=== PATIENT | female | born 1955 | race Asian ===

== ENCOUNTER → 2017-08-11 | Outpatient (CLI) | payer OTHER | LOC: BRMIMAGING 10:21 | PROVIDERS: ATTEND Family Medicine | DX: Z12.31 Encounter for screening mammogram for malignant neoplasm of breast (principal); Z13.820 Encounter for screening for osteoporosis; M81.0 Age-related osteoporosis without current pathological fracture; Z82.62 Family history of osteoporosis; Z78.0 Asymptomatic menopausal state ==